=== PATIENT | female | born 1965 | race American Indian/Alaskan Native ===

== ENCOUNTER 2017-09-23 07:33 | Emergency (ER) | payer BC, OTHER ==
[2017-09-23] MEDS ORDERED: DUONEB *Not for PRN Use IH ONE (08:19)
--- NOTE | 2017-09-23 09:09 | Emergency Department Report ---
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 Patient presented to the ER complaining of shortness of breath and wheezing started yesterday. The patient already received one breathing treatment in the ER and she stated that she feels much better. Patient denied any chest pain, nausea or vomiting. MD Complaint: "asthma attack", shortness of breath, wheezing -: days(s) Asthma History: adult onset Severity: moderate Treatments Prior to Arrival: inhaled bronchodilator - Related Data Current Asthma Therapy: inhaled bronchodilator, inhaled steroid Home Medications Medication Instructions Recorded Confirmed Last Taken Insulin Glargine,Hum.rec.anlog 25 unit SQ QHS 12/03/13 12/03/13 12/02/13 [Lantus] Losartan [Cozaar] 100 mg PO QDAY 12/03/13 12/03/13 12/02/13 glipiZIDE [glipiZIDE ER] 4 mg PO QAM 12/03/13 12/03/13 12/02/13 Allergies Allergy/AdvReac Type Severity Reaction Status Date / Time Sulfa (Sulfonamide AdvReac Unknown Verified 12/03/13 14:27 Antibiotics) ED Review of Systems ROS: Stated complaint: SHORTNESS OF BREATH Other details as noted in HPI Comment: All other systems reviewed and negative Constitutional: denies: chills, fever Respiratory: shortness of breath, wheezing. denies: cough, orthopnea, SOB with exertion, SOB at rest Cardiovascular: denies: chest pain, palpitations, dyspnea on exertion Gastrointestinal: denies: abdominal pain, nausea, vomiting, diarrhea, constipation, hematemesis, melena, hematochezia Musculoskeletal: denies: back pain Neurological: denies: headache, weakness, numbness, paresthesias ED Past Medical Hx - Past Medical History Hx Hypertension: Yes Hx Diabetes: Yes Hx Asthma: Yes Additional medical history: High cholesterol - Surgical History Additional Surgical History: Lap Band 2010 - Social History Smoking Status: Never Smoker Substance Use Type: None - Medications Home Medications: Home Medications Medication Instructions Recorded Confirmed Last Taken Type Insulin Glargine,Hum.rec.anlog 25 unit SQ QHS 12/03/13 12/03/13 12/02/13 History [Lantus] Losartan [Cozaar] 100 mg PO QDAY 12/03/13 12/03/13 12/02/13 History glipiZIDE [glipiZIDE ER] 4 mg PO QAM 12/03/13 12/03/13 12/02/13 History ED Physical Exam - General Limitations: No Limitations General appearance: alert, in no apparent distress - Head Head exam: Present: atraumatic, normocephalic, normal inspection - Eye Eye exam: Present: normal appearance - ENT ENT exam: Present: normal exam, normal orophraynx, mucous membranes moist - Neck Neck exam: Present: normal inspection, full ROM. Absent: tenderness, meningismus, lymphadenopathy, thyromegaly - Respiratory Respiratory exam: Present: normal lung sounds bilaterally. Absent: respiratory distress, wheezes, rales, rhonchi, stridor, accessory muscle use, decreased breath sounds, prolonged expiratory - Cardiovascular Cardiovascular Exam: Present: regular rate, normal rhythm, normal heart sounds - Extremities Exam Extremities exam: Present: normal inspection - Neurological Exam Neurological exam: Present: alert, oriented X3, CN II-XII intact, normal gait - Skin Skin exam: Present: warm, intact, normal color ED Course Vital Signs 09/23/17 09/23/17 09/23/17 08:16 08:20 08:30 Temperature 100.1 F H Pulse Rate 103 H Pulse Rate [ 106 H 110 H Posterior Bilateral Throughout] Respiratory 20 Rate Respiratory 20 16 Rate [Posterior Bilateral Throughout] Blood Pressure 139/80 O2 Sat by Pulse 97 Oximetry Critical care attestation.: If time is entered above; I have spent that time in minutes in the direct care of this critically ill patient, excluding procedure time. ED Disposition Clinical Impression: Asthma exacerbation Disposition: DC-01 TO HOME OR SELFCARE Is pt being admited?: No Condition: Stable Instructions: Asthma (ED) Forms: Work/School Release Form(ED)
[2017-09-23 09:21] VITALS: BP 176/82
== END 2017-09-23 09:20 | disposition home or self-care (01) ==
LOC: ED 07:33
DX: J45.901 Unspecified asthma with (acute) exacerbation (principal)
CPT/HCPCS: 94640; 99282